=== PATIENT | female | born 1985 | race Hispanic/Latino ===

== ENCOUNTER 2021-01-16 21:08 | Emergency (ER) | payer OTHER ==
[~2021-01-16] VITALS: Ht 177.8 cm; Wt 86.0 kg
[2021-01-16] MEDS ORDERED: LEVOTHYROXINE150 MC1 PO (21:34)
== END 2021-01-17 00:01 | disposition home or self-care (01) ==
LOC: ED 21:08
DX: O20.9 Hemorrhage in early pregnancy, unspecified (principal); Z3A.01 Less than 8 weeks gestation of pregnancy; Z79.899 Other long term (current) drug therapy
CPT/HCPCS: 76801; 76817; 80048; 81001; 84702; 84703; 85025; 86900; 86901; 99284-25